=== PATIENT | female | born 1945 | race Caucasian/White ===

== ENCOUNTER → 2017-02-21 | Outpatient (CLI) | payer MEDICARE ==
--- NOTE | 2017-02-21 11:53 | MM ---
Reason for exam: additional evaluation requested from prior study. Last mammogram was performed 1 year ago. History: Patient is postmenopausal and has history of breast cancer at age 63. Family history of breast cancer in paternal aunt at age 60, breast cancer in paternal aunt, and breast cancer in 2 maternal aunts. Malignant right breast needle localzation of the right breast, March 21, 2009. Lumpectomy of the right breast, March 21, 2009. Malignant right mammotome panel of the right breast, March 03, 2009. Benign excisional biopsy of the left breast, 1989. Benign excisional biopsy of the right breast, 1979. Benign excisional biopsy of the right breast, 1969. Benign excisional biopsy of the left breast, 1968. Took estrogen for 9 years 10 months beginning at age 52. Took progesterone for 9 years 10 months beginning at age 52. Took antineoplastic for 5 years beginning at age 63. Physical Findings: Nurse did not find any significant physical abnormalities on exam. MG 3D Diag Mammo W/Cad ANURADHA Bilateral CC and MLO view(s) were taken. Prior study comparison: February 19, 2016, bilateral MG 3d diag mammo w/cad ANURADHA. February 17, 2015, bilateral MG diagnostic mammo w CAD ANURADHA. There are scattered fibroglandular densities. Surgical clips and sensity in the right upper outer quadrant, stable. No significant new findings when compared with previous films. These results were verbally communicated with the patient and result sheet given to the patient on 02/21/17. ASSESSMENT: Benign, BI-RAD 2 RECOMMENDATION: Follow-up diagnostic mammogram of both breasts in 1 year.
== END | disposition home or self-care (01) ==
LOC: RADMAMWWP 10:47
PROVIDERS: ATTEND Internal Medicine Hematology & Oncology
DX: Z85.3 Personal history of malignant neoplasm of breast (principal)
CPT/HCPCS: G0204; G0279

== ENCOUNTER → 2018-03-01 | Outpatient (CLI) | payer MEDICARE ==
--- NOTE | 2018-03-01 10:42 | MM ---
Reason for exam: additional evaluation requested from prior study. Last mammogram was performed 1 year ago. History: Patient is postmenopausal and has history of breast cancer at age 63. Family history of breast cancer in paternal aunt at age 60, breast cancer in paternal aunt, and breast cancer in 2 maternal aunts. Malignant right breast needle localzation of the right breast, March 21, 2009. Lumpectomy of the right breast, March 21, 2009. Malignant right mammotome panel of the right breast, March 03, 2009. Benign excisional biopsy of the left breast, 1989. Benign excisional biopsy of the right breast, 1979. Benign excisional biopsy of the right breast, 1969. Benign excisional biopsy of the left breast, 1968. Took estrogen for 9 years 10 months beginning at age 52. Took progesterone for 9 years 10 months beginning at age 52. Took antineoplastic for 5 years beginning at age 63. Physical Findings: Nurse did not find any significant physical abnormalities on exam. MG 3D Diag Mammo W/Cad ANURADHA Bilateral CC and MLO view(s) were taken. Prior study comparison: February 21, 2017, bilateral MG 3d diag mammo w/cad ANURADHA. February 19, 2016, bilateral MG 3d diag mammo w/cad ANURADHA. The breast tissue is heterogeneously dense. This may lower the sensitivity of mammography. Finding: There are typically benign coarse calcifications in the right breast. Focal asymmetry. Post lumpectomy changes. No significant changes in finding since February 21, 2017 and February 19, 2016. These results were verbally communicated with the patient and result sheet given to the patient on 03/01/18. ASSESSMENT: Benign, BI-RAD 2 RECOMMENDATION: Routine screening mammogram of both breasts in 1 year.
== END | disposition home or self-care (01) ==
LOC: RADMAMWWP 09:22
PROVIDERS: ATTEND Internal Medicine Hematology & Oncology
DX: Z08 Encounter for follow-up examination after completed treatment for malignant neoplasm (principal); Z85.3 Personal history of malignant neoplasm of breast
CPT/HCPCS: 77066; G0279; 77062

== ENCOUNTER → 2019-03-02 | Outpatient (CLI) | payer MEDICARE ==
--- NOTE | 2019-03-02 10:00 | MM ---
Reason for exam: additional evaluation requested from prior study. Last mammogram was performed 1 year ago. History: Patient is postmenopausal and has history of breast cancer at age 63. Family history of breast cancer in paternal aunt at age 60, breast cancer in paternal aunt, and breast cancer in 2 maternal aunts. Malignant right breast needle localzation of the right breast, March 21, 2009. Lumpectomy of the right breast, March 21, 2009. Malignant right mammotome panel of the right breast, March 03, 2009. Benign excisional biopsy of the left breast, 1989. Benign excisional biopsy of the right breast, 1979. Benign excisional biopsy of the right breast, 1969. Benign excisional biopsy of the left breast, 1968. Took estrogen for 9 years 10 months beginning at age 52. Took progesterone for 9 years 10 months beginning at age 52. Took antineoplastic for 5 years beginning at age 63. Physical Findings: Nurse did not find any significant physical abnormalities on exam. MG 3D Diag Mammo W/Cad ANURADHA Bilateral CC and MLO view(s) were taken. ML and spot compression CC view(s) were taken of the right breast. Prior study comparison: March 01, 2018, bilateral MG 3d diag mammo w/cad ANURADHA. February 21, 2017, bilateral MG 3d diag mammo w/cad ANURADHA. There are scattered fibroglandular densities. Post surgical and post therapy change right breast. Progressive fat necrosis calcifications at the upper outer quadrant posterior scar. Adjacent nodularity on the CC view is superficial. Tech places a mole marker to indicate some nodularity relating the scar and this seems to correspond to the mammographic finding. 6 month follow up recommended. These results were verbally communicated with the patient and result sheet given to the patient on 03/02/19. ASSESSMENT: Probably benign, BI-RAD 3 RECOMMENDATION: Follow-up diagnostic mammogram of the right breast in 6 months.
== END ==
LOC: RADMAMWWP 08:34
PROVIDERS: ATTEND Internal Medicine Hematology & Oncology
DX: Z08 Encounter for follow-up examination after completed treatment for malignant neoplasm (principal); Z85.3 Personal history of malignant neoplasm of breast
CPT/HCPCS: 77066; G0279; 77062

== ENCOUNTER → 2019-06-08 | Outpatient (CLI) | payer MEDICARE ==
[2019-06-08 08:48] VITALS: BP 160/88; PULSE 75; RESP 18; TEMP 97.8
--- NOTE | 2019-06-08 09:07 | P.GSHP ---
History of Present Illness H&P Date: 06/08/19 Chief Complaint: abnormal mammogram, nonhealing wound right breast The patient is a 74-year-old white female seen in consultation for Dr. Naveen Juarez regarding a nonhealing wound of her right breast. The patient is a 74 year old white female who had a mammogram on 03-02-19. She had a history of breast cancer at the age of 63 in the right breast, that was treated with a lumpectomy and radiation. She had no involvement of the lymph nodes. She did not have chemotherapy. She did take Femara for about 5 years. She had side effects from this with her feet and did not complete the full five-year course. The lumpectomy was in the upper inner aspect of the right breast. In 1979 the patient had a benign breast biopsy in the lateral aspect of the right breast. Mammogram findings from February 2019 revealed progressive fat necrosis and calcifications at the upper quadrant posterior scar area. Adjacent nodularity in the cc view was superficial. A marker was placed there to indicate some nodularity related in the scar and this seemed to correspond to the mammographic findings. Six-month follow-up of the right breast was recommended. No lesions of concern were noted in the left breast. Historical of significance is the fact that the marker would have been placed on the upper outer quadrant area of the right breast. The patient several days later noticed that the marker was still in place and when she removed as there was some excoriation at the area. An abscess developed at this site which required drainage in her primary care doctor's office on several occasions. The area continues to drain and she comes for evaluation related to this. The area of the skin is slightly pink in color. The drainage is clear. She has not been treated with any antibiotics. The patient is not having any pain. Family History: father: bladder cancer mother: colon cancer brother: cancer unknown primary and brother: prostate Hormonal History: menarche: 15 , breast fed: no, age at : 24 menopause: 52 hormones: 11 years, BCP: 20 years Medical History: dry eyes poor feeling in feet and pain HTN thyroid nodules/radioactive iodine, does not take synthroid Surgical History: 1. thyroid resection 2. tubaligation 3. right knee replacement 4. six breast biopsies, bilateral 5. right breast lumpectomy for invasive lobular cancer < 1 cm Social history: smoke: none alcohol: weekends drugs: none - Constitutional Constitutional: Denies chills, Denies fever - EENT Comment: dry eyes Eyes: denies blurred vision, denies pain Ears: deny: decreased hearing, tinnitus Ears, nose, mouth and throat: Denies headache, Denies sore throat - Breasts Breasts: bilateral: as per HPI - Cardiovascular Cardiovascular: Reports high blood pressure - Respiratory Respiratory: Denies cough, Denies 7 - Gastrointestinal Gastrointestinal: Denies abdominal pain, Denies diarrhea, Denies nausea, Denies vomiting - Genitourinary (Female) Genitourinary: Reports kidney stones, Denies dysuria, Denies hematuria - Menstruation Menstruation: Reports postmenopausal - Musculoskeletal Comment: arthritis - Integumentary Comment: dry skin, rosacea Integumentary: Denies pruritus, Denies rash - Neurological Neurological: Denies numbness, Denies weakness - Psychiatric Psychiatric: Denies anxiety, Denies depression - Endocrine Endocrine: Denies fatigue, Denies weight change - Hematologic/Lymphatic Comment: none - Allergic/Immunologic Allergic/Immunologic: Reports seasonal allergies Medications and Allergies Home Medications Medication Instructions Recorded Confirmed Type Ascorbic Acid [Vitamin C] 360 mg PO HS 06/08/19 06/08/19 History Azelaic Acid 1 applic TOPICAL HS 06/08/19 06/08/19 History Calcium Carb/Vitamin D3/Vit K1 1 each PO QAM 06/08/19 06/08/19 History [Citracal Soft Chew] Cartilage/Collagen/Bor/Hyalur 1 each PO QAM 06/08/19 06/08/19 History [Move Free Ultra Tablet] Cholecalciferol (Vitamin D3) 2,000 unit PO HS 06/08/19 06/08/19 History [Vitamin D3] Krill/[place]-3/Dha/Epa/Lipids 1 each PO BID 06/08/19 06/08/19 History [Krill Oil 350 mg Softgel] Multivit-Min/Iron/Folic/Lutein 1 each PO HS 06/08/19 06/08/19 History [Centrum Silver Women Tablet] Olmesartan [Benicar] 20 mg PO HS 06/08/19 06/08/19 History Allergies Allergy/AdvReac Type Severity Reaction Status Date / Time Sulfa (Sulfonamide Allergy Rash/Hives Unverified 06/08/19 08:03 Antibiotics) Surgical - Exam BMI 36.1 - General obese - Eyes normal ocular movement - ENT normal pinna, no hearing loss, no congestion - Neck no masses, trachea midline, no lymphadectomy - Respiratory normal respiratory effort, clear to auscultation - Cardiovascular Rhythm: regular Heart Sounds: normal: S1, S2 - Abdomen Abdomen: soft, non tender, no guarding, no rigid, no rebound - Integumentary Lateral aspect of the right breast a small open area of drainage approximately 3 mm in size the drainage is clear and serous-appearing in nature - Neurologic no disoriented, no combative - Musculoskeletal normal gait, normal posture - Psychiatric oriented to time, oriented to person, oriented to place, speech is normal, m [place] intact Breast examination: Bra 42C ptosis grade 3 Right breast: Scar lateral aspect of the breast with an opening approximately 3 mm in the portion of the scar. There is serous drainage from this area and on palpation there is a nodular area approximately 3 x 2 cm in size adjacent to this, multiple positional examined the remainder of the breast reveals fibrocystic changes with no dominant masses or nodules of concern otherwise Right axilla: No adenopathy of concern Left breast: Multiple positional exam no dominant masses or nodules of concern, well-healed scar from prior biopsies Left axilla: No adenopathy of concern Results Mammogram reviewed Assessment and Plan Assessment: Impression: 1. Mass right breast lateral aspect 2. Personal history of invasive lobular carcinoma right breast 3. Mammographic abnormality 4. draining lesion right breast lateral aspect, this is believed to be contiguous with the prior biopsy cavity which is in the radiated tissue 5. Fibrocystic breast changes 6. Family history of cancer 7. Hypertension 8. Nephritis 9. Right breast mammogram 6 month follow-up in July 2019, to follow here physically lesion of concern on the mammogram Plan: 1. Appointment and wound clinic for hyperbaric oxygen 2. wound cultures obtained awaiting results 3. Options of conservative management with no intervention versus surgical resection versus hyperbaric oxygen and then possible surgical resection if this fails to heal well discussed with the patient. Dr. Rito Seymour from infectious disease was called in consultation was set up at the wound clinic for possible hyperbaric oxygen. The patient understands the options and the risks and benefits and wishes to proceed with consultation with Dr. Rito Seymour. She has vacation scheduled in [place] for July and will return to see us in October. Additionally the patient was recommended to have repeat right breast mammogram in 6 months which will be in July prior to her trip to [place] if there is any concern on that radiograph would like to see her at that time. CC: Dr. Juarez Encounter 40 minutes, > 50% in counseling and planning
== END ==
LOC: WWCWWP 07:37
PROVIDERS: ATTEND Surgery
DX: L76.34 Postprocedural seroma of skin and subcutaneous tissue following other procedure (principal)
CPT/HCPCS: 87070; 87075; 87077; 87186; 87205

== ENCOUNTER → 2019-07-10 | Outpatient (CLI) | payer MEDICARE ==
--- NOTE | 2019-07-10 14:24 | MM ---
Reason for exam: follow-up at short interval from prior study. Last mammogram was performed 4 months ago. History: Patient is postmenopausal and has history of breast cancer at age 63. Family history of breast cancer in paternal aunt at age 60, breast cancer in paternal aunt, and breast cancer in 2 maternal aunts. Malignant right breast needle localzation of the right breast, March 21, 2009. Lumpectomy of the right breast, March 21, 2009. Malignant right mammotome panel of the right breast, March 03, 2009. Benign excisional biopsy of the left breast, 1989. Benign excisional biopsy of the right breast, 1979. Benign excisional biopsy of the right breast, 1969. Benign excisional biopsy of the left breast, 1968. Took estrogen for 9 years 10 months beginning at age 52. Took progesterone for 9 years 10 months beginning at age 52. Took antineoplastic for 5 years beginning at age 63. Physical Findings: Nurse did not find any significant physical abnormalities on exam. MG 3D Diag Mammo W/Cad RT CC and MLO view(s) were taken of the right breast. Prior study comparison: March 02, 2019, bilateral MG 3d diag mammo w/cad ANURADHA. March 01, 2018, bilateral MG 3d diag mammo w/cad ANURADHA. The breast tissue is heterogeneously dense. This may lower the sensitivity of mammography. No suspicious abnormality. Post therapy change on the right. Previous asymmetry appears as fat necrosis. These results were verbally communicated with the patient and result sheet given to the patient on 07/10/19. ASSESSMENT: Benign, BI-RAD 2 RECOMMENDATION: Routine screening mammogram of both breasts in 8 months. Back on schedule for February 2020.
== END | disposition home or self-care (01) ==
LOC: RADMAMWWP 12:50
PROVIDERS: ATTEND Internal Medicine Hematology & Oncology
DX: R92.8 Other abnormal and inconclusive findings on diagnostic imaging of breast (principal); Z85.3 Personal history of malignant neoplasm of breast
CPT/HCPCS: 77065; G0279; 77061

== ENCOUNTER → 2020-02-26 | Outpatient (CLI) | payer MEDICARE ==
--- NOTE | 2020-02-27 09:15 | MM ---
Reason for exam: screening (asymptomatic). Last mammogram was performed 8 months ago. History: Patient is postmenopausal and has history of breast cancer at age 63. Family history of breast cancer in paternal aunt at age 60, breast cancer in paternal aunt, and breast cancer in 2 maternal aunts. Malignant right breast needle localzation of the right breast, March 21, 2009. Lumpectomy of the right breast, March 21, 2009. Malignant right mammotome panel of the right breast, March 03, 2009. Benign excisional biopsy of the left breast, 1989. Benign excisional biopsy of the right breast, 1979. Benign excisional biopsy of the right breast, 1969. Benign excisional biopsy of the left breast, 1968. Took estrogen for 9 years 10 months beginning at age 52. Took progesterone for 9 years 10 months beginning at age 52. Took antineoplastic for 5 years beginning at age 63. Physical Findings: A clinical breast exam by your physician is recommended on an annual basis and results should be correlated with mammographic findings. MG 3D Screening Mammo W/Cad Bilateral CC and MLO view(s) were taken. Prior study comparison: July 10, 2019, right breast MG 3d diag mammo w/cad RT. March 02, 2019, bilateral MG 3d diag mammo w/cad ANURADHA. The breast tissue is heterogeneously dense. This may lower the sensitivity of mammography. Stable benign calcifications. There is no discrete abnormality. No significant changes when compared with prior studies. ASSESSMENT: Benign, BI-RAD 2 RECOMMENDATION: Routine screening mammogram of both breasts in 1 year.
== END | disposition home or self-care (01) ==
LOC: RADMAMWWP 10:02
PROVIDERS: ATTEND Internal Medicine Hematology & Oncology
DX: Z12.31 Encounter for screening mammogram for malignant neoplasm of breast (principal)
CPT/HCPCS: 77063; 77067

== ENCOUNTER → 2020-08-18 | Outpatient (CLI) | payer MEDICARE ==
[2020-08-18 14:41] LABS: Basophils # (A) 0.04 X 10*3/uL (0.00-0.10); Basophils % (A) 0.7 %; Eosinophils % (A) 3.4 %; HCT 42.4 % (37.2-46.3); HGB 13.8 g/dL (12.0-15.0); Lymphocytes # (A) 1.99 X 10*3/uL (0.90-5.00); Lymphocytes % (A) 34.2 %; MCH 31.9 pg (27.0-32.0); MCHC 32.5 g/dL (32.0-37.0); MCV 97.9 fL (80.0-97.0); Mean Platelet Volume 11.5 fL (9.5-12.2); Monocytes # (A) 0.55 X 10*3/uL (0.20-1.00); Monocytes % (A) 9.5 %; Neutrophils # (A) 3.03 X 10*3/uL (1.80-7.70); Platelet Count 254 X 10*3/uL (140-440); RBC 4.33 X 10*6/uL (4.10-5.20); RDW 11.9 % (11.5-14.5); WBC 5.82 X 10*3/uL (4.50-10.00)
[2020-08-18 15:01] LABS: T4, Free (Free Thyroxine) 1.4 ng/dL (0.80-1.80)
[2020-08-18 16:07] LABS: African American GFR (CKD) 73.5 (60.0-200.0); Albumin/Globulin Ratio 2.08 (1.60-3.17); Anion Gap 5.3 mmol/L (4.00-12.00); BUN/Creat Ratio 26.67 Ratio (12.00-20.00); Calcium 9.8 mg/dL (8.7-10.3); Carbon Dioxide 28.7 mmol/L (21.6-31.8); Chol/HDL Ratio 2.84; Globulin 2.4 g/dL (1.6-3.3); LDL Cholesterol,Calculated 164.4 mg/dL (0.0-131.0); Non-African American GFR(CKD) 63.4 (60.0-200.0); Potassium 4.9 mmol/L (3.5-5.5); Total Bilirubin 0.6 mg/dL (0.3-1.2); Total Protein 7.4 g/dL (6.2-8.2); VLDL Calculation 13.6 mg/dL (5.00-40.00)
== END | disposition home or self-care (01) ==
LOC: LABWHC1 09:13
PROVIDERS: ATTEND Internal Medicine
DX: E03.9 Hypothyroidism, unspecified (principal); E55.9 Vitamin D deficiency, unspecified; E78.5 Hyperlipidemia, unspecified; I10 Essential (primary) hypertension
CPT/HCPCS: 36415; 80053; 80061; 82306; 84439; 84443; 84481; 85025

== ENCOUNTER → 2021-02-26 | Outpatient (CLI) | payer MEDICARE ==
--- NOTE | 2021-03-02 11:45 | MM ---
Reason for exam: screening (asymptomatic). Last mammogram was performed 1 year ago. History: Patient is postmenopausal and has history of breast cancer at age 63. Family history of breast cancer in paternal aunt at age 60, breast cancer in paternal aunt, and breast cancer in 2 maternal aunts. Malignant right breast needle localzation of the right breast, March 21, 2009. Lumpectomy of the right breast, March 21, 2009. Malignant right mammotome panel of the right breast, March 03, 2009. Benign excisional biopsy of the left breast, 1989. Benign excisional biopsy of the right breast, 1979. Benign excisional biopsy of the right breast, 1969. Benign excisional biopsy of the left breast, 1968. Took estrogen for 9 years 10 months beginning at age 52. Took progesterone for 9 years 10 months beginning at age 52. Took antineoplastic for 5 years beginning at age 63. Physical Findings: A clinical breast exam by your physician is recommended on an annual basis and results should be correlated with mammographic findings. MG 3D Screening Mammo W/Cad Bilateral CC and MLO view(s) were taken. Prior study comparison: February 26, 2020, bilateral MG 3d screening mammo w/cad. July 10, 2019, right breast MG 3d diag mammo w/cad RT. There are scattered fibroglandular densities. Post surgical and post therapy change right breast. Stable fat necrosis calcifications at lumpectomy site. No significant changes when compared with prior studies. ASSESSMENT: Benign, BI-RAD 2 RECOMMENDATION: Routine screening mammogram of both breasts in 1 year.
== END | disposition home or self-care (01) ==
LOC: RADMAMWWP 10:33
PROVIDERS: ATTEND Internal Medicine Hematology & Oncology
DX: Z12.31 Encounter for screening mammogram for malignant neoplasm of breast (principal); Z80.3 Family history of malignant neoplasm of breast
CPT/HCPCS: 77063; 77067

== ENCOUNTER 2021-10-14 07:14 | Day surgery (SDC) | payer MEDICARE ==
[2021-10-12 16:38] VITALS: BMI 36.0
--- NOTE | 2021-10-13 19:37 | P.GSHP ---
History of Present Illness H&P Date: 10/13/21 76 yo female with a large collection of renal stones left[>2cm] who has pain and nausea seonfary to the stone. SHe comes for a left pcnl. the risks , complications and alternatives were discussed. - Constitutional Constitutional: Denies chills, Denies fever - EENT Eyes: denies blurred vision, denies pain Ears, nose, mouth and throat: Denies headache, Denies sore throat - Cardiovascular Cardiovascular: Denies chest pain, Denies shortness of breath - Respiratory Respiratory: Denies cough, Denies 7 - Gastrointestinal Gastrointestinal: Denies abdominal pain, Denies diarrhea, Denies nausea, Denies vomiting - Genitourinary (Female) Genitourinary: Denies dysuria, Denies hematuria - Genitourinary (Male) Genitourinary: Denies dysuria, Denies hematuria - Musculoskeletal Musculoskeletal: Denies myalgias - Integumentary Integumentary: Denies pruritus, Denies rash - Neurological Neurological: Denies numbness, Denies weakness - Psychiatric Psychiatric: Denies anxiety, Denies depression - Endocrine Endocrine: Denies fatigue, Denies weight change Past Medical History Past Medical History: Cancer, Hyperlipidemia, Hypertension, Osteoarthritis (OA), Skin Disorder, Thyroid Disorder Additional Past Medical History / Comment(s): Right breast cancer 2008; skin cancer. HTN after cancer tx, takes Rx prn. Environmental allergies. Hx thyroid nodules, hx radioactive iodine tx 2003. Occ GERD. IBS. Rosacea. Lt kidney stone History of Any Multi-Drug Resistant Organisms: None Reported Past Surgical History: Breast Surgery, Orthopedic Surgery, Tubal Ligation Additional Past Surgical History / Comment(s): Rt knee replacement 2005; benign excisional biopsy lt breast 1968, 1989; benign excisional biopsy rt breast 1969, 1979; right breast lumpectomy 03/2009; cataracts Past Anesthesia/Blood Transfusion Reactions: No Reported Reaction, Family Hi story of Problems w/ Anesthesia Additional Past Anesthesia/Blood Transfusion Reaction / Comment(s): Mother had prob years ago. Smoking Status: Never smoker - Past Family History Father Family Medical History: Cancer Additional Family Medical History / Comment(s): Bladder Cancer Mother Family Medical History: Cancer Additional Family Medical History / Comment(s): Colon Cancer Brother(s) Family Medical History: Cancer Additional Family Medical History / Comment(s): Brother #1: cancer of unknown origin. Brother #2: prostate cancer Medications and Allergies Home Medications Medication Instructions Recorded Confirmed Type Ascorbic Acid [Vitamin C] 360 mg PO HS 06/08/19 10/12/21 History Azelaic Acid 1 applic TOPICAL HS PRN 06/08/19 10/12/21 History Calcium Carb/Vitamin D3/Vit K1 1 each PO QAM 06/08/19 10/12/21 History [Citracal Soft Chew] Cartilage/Collagen/Bor/Hyalur 1 each PO QAM 06/08/19 10/12/21 History [Move Free Ultra Tablet] Cholecalciferol (Vitamin D3) 2,000 unit PO HS 06/08/19 10/12/21 History [Vitamin D3] Krill/[place]-3/Dha/Epa/Lipids 1 each PO BID 06/08/19 10/12/21 History [Krill Oil 350 mg Softgel] Multivit-Min/Iron/Folic/Lutein 1 each PO HS 06/08/19 10/12/21 History [Centrum Silver Women Tablet] Olmesartan [Benicar] 20 mg PO DAILY PRN 06/08/19 10/12/21 History Acetaminophen [Tylenol 8 Hour] 1,300 mg PO DIRECTED PRN 10/12/21 10/12/21 History Calcium Carbonate [Tums] 1,000 mg PO QID PRN 10/12/21 10/12/21 History Fluticasone Nasal [place] [Flonase 2 spray EA NOSTRIL DAILY PRN 10/12/21 10/12/21 History Nasal [place]] L.acidoph,Paracasei, B.lactis 1 each PO DAILY 10/12/21 10/12/21 History [Probiotic] Loperamide [Imodium] 2 mg PO QID PRN 10/12/21 10/12/21 History Lutein (Unknown Dose) 1 tab PO DAILY 10/12/21 History Allergies Allergy/AdvReac Type Severity Reaction Status Date / Time Sulfa (Sulfonamide Allergy Rash/Hives Unverified 10/12/21 16:10 Antibiotics) Surgical - Exam - General well developed, well nourished - Eyes normal ocular movement, no icteric - ENT no hearing loss, no congestion - Neck no masses, trachea midline - Respiratory normal respiratory effort, clear to auscultation - Abdomen Abdomen: soft, non tender, no guarding, no rigid, no rebound - Integumentary no rash, no abnormal pigmentation - Neurologic no disoriented, no combative - Psychiatric oriented to time, oriented to person, oriented to place, speech is normal, memory intact Results - Imaging CT scan - abdomen: report reviewed, image reviewed CT scan - pelvis: report reviewed, image reviewed Assessment and Plan Assessment: Impression: Left renal stones large Plan: PCNL left
[~2021-10-14 07:14] MED LIST: LIDOCAINE 1% (10MG/ML) FOR IV START INTRADERMA PRN; MIDAZOLAM 2 MG/2 ML VIAL IV PRN
--- NOTE | 2021-10-14 07:45 | XR ---
EXAMINATION TYPE: XR KUB DATE OF EXAM: 10/14/2021 COMPARISON: None HISTORY: Renal stones presurgical evaluation TECHNIQUE: AP supine abdomen FINDINGS: There are 2 large calcifications in the left renal pelvis measuring 2.2-1.5 cm in size. Mul tiple additional punctate calcifications are within the left kidney. There is a large calcification within the left upper pelvis measuring 2.7 cm. Correlate for uterine f ibroid. Psoas margins are normal. Normal bowel gas is present. Organomegaly is not present. Osseous structure s appear intact. IMPRESSION: 1. 2 large calcifications in the left renal pelvic region with additional smaller calcifications lef t kidney
[2021-10-14] MEDS: LACTATED RINGERS 1,000 ML IV SCH ×3 (08:07→17:28)
[2021-10-14] MEDS: ONDANSETRON 4 MG/2 ML VIAL IVP ONE ×2 (08:13→17:28)
[2021-10-14] MEDS: DEXAMETHASONE SOD PHOSPHATE 4 MG/ML 1 ML VIAL IV ONE ×2 (08:13→17:28)
[2021-10-14] MEDS ORDERED: ENALAPRILAT 1.25 MG/ML 1 ML VIAL ONE (08:31)
[2021-10-14] MEDS ORDERED: ENALAPRILAT 1.25 MG/ML 1 ML VIAL IVP ONE (08:34)
[2021-10-14] MEDS ORDERED: HYDROmorphone (PF) 1 MG/ML ONE (09:01)
[2021-10-14] MEDS ORDERED: GLYCOPYRROLATE 0.2 MG/ML 2 ML VIAL ONE (09:01)
[2021-10-14] MEDS ORDERED: PROPOFOL 10 MG/ML 20 ML VIAL IV ONE (09:01)
[2021-10-14] MEDS ORDERED: LIDOCAINE 1% INJ 10MG/ML (20 ML MDV) ONE (09:01)
[2021-10-14] MEDS ORDERED: ROCURONIUM 10 MG/ML (5 ML VIAL) IV ONE (09:01)
[2021-10-14] MEDS ORDERED: MIDAZOLAM 2 MG/2 ML VIAL ONE (09:01)
[2021-10-14] MEDS ORDERED: fentaNYL (PF) 50 MCG/ML 2 ML AMP ONE (09:01)
[2021-10-14] MEDS ORDERED: NEOSTIGMINE 1 MG/ML 10 ML VIAL ONE (09:01)
[2021-10-14] MEDS ORDERED: SUCCINYLCHOLINE CHLORIDE 100 MG/5 ML SYR IV ONE (09:01)
[2021-10-14] MEDS ORDERED: LACTATED RINGERS 1,000 ML IV ONE (09:50)
[2021-10-14] MEDS ORDERED: IOPAMIDOL-370 50ML BTL IRRIGATION ONE (09:50)
[2021-10-14] MEDS ORDERED: LOSARTAN 50 MG TAB PO PRN (10:42)
[2021-10-14] MEDS ORDERED: FLUTICASONE 50MCG/SPRAY NASAL 16GM EA NOSTRIL PRN (10:42)
[2021-10-14] MEDS ORDERED: LOPERAMIDE 2 MG CAP PO PRN (10:42)
[2021-10-14] MEDS ORDERED: NON FORMULARY DRUG (Acetaminophen [Tylenol 8 Hour] 650 MG Tablet) PO PRN (10:42)
[2021-10-14] MEDS ORDERED: ONDANSETRON 4 MG/2 ML VIAL IVP PRN (10:43)
[2021-10-14] MEDS ORDERED: MAG HYDROX/AL HYDROX/SIMETH 30 ML CUP PO PRN (10:43)
[2021-10-14] MEDS ORDERED: HYDROmorphone PCA 10 MG/50 ML BAG IV PRN (10:45)
[2021-10-14] MEDS ORDERED: NALOXONE 0.4 MG/ML 1 ML VIAL IV PRN (10:45)
--- NOTE | 2021-10-14 10:51 | P.OP ---
Date of Procedure: 10/14/21 Preoperative Diagnosis: Left renal stones, large (greater than 2 cm) Postoperative Diagnosis: Same Procedure(s) Performed: Cystoscopy, placement of occluding balloon catheter left, percutaneous nephrostomy (Dr. woods), percutaneous nephrostolithotomy with ultrasound, placement of 10 J nephrostomy Anesthesia: LUCAS Surgeon: Lawrence Sylvester Estimated Blood Loss (ml): 100 Pathology: other (Stone) Condition: stable Disposition: PACU Indications for Procedure: Patient is 76. She has a painful volume, large, greater than 2 cm, kidney stones in the left renal pelvis. She comes for percutaneous nephrostolithotomy Description of Procedure: Patient brought to the operating suite. Given general anesthesia on the transport gurney. She's placed in a frog position. Sterile prep and drape was administered. 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 The left ureter orifice is identified and intubated with a 5-Belgian occluding balloon catheter passed up the renal pelvis. The cystoscope removed. A 16-Belgian Ivy catheters introduced into the bladder and secured to the ureteral catheter The patient was placed in a prone position with care to airways and extremities. A sterile prep and drape was administered. The left kidney is intubated by Dr. woods of radiology. This is a middle pole calyx. I then dilate the nephrostomy tract to 30-Belgian. Introduced the rigid sheath into the collecting system. Arch renal stones are seen in the pelvis. With ultrasound these are broken into smaller pieces and grasped and removed. Then pass a flexible cystoscope down and the UPJ and basket stone fragments. I then looked throughout the collecting system best possible and see no remaining stones. Then the procedure there is no remaining stones on fluoroscopy. A 10 J nephrostomy tube was placed. It is secured to the skin. The patient's awake and returned recovery in good condition. Blood loss is about 100 mL. Her condition is good.
[2021-10-14] MEDS: HYDROmorphone 0.5 MG/0.5 ML SYRINGE IVP PRN ×2 (10:57→11:11)
[2021-10-14] MEDS: KETOROLAC 15 MG/ML 1 ML VIAL IVP PRN ×3 (11:25→23:53)
--- NOTE | 2021-10-14 11:34 | FL ---
EXAMINATION TYPE: FL Perc Nephrostomy New Access DATE OF EXAM: 10/14/2021 COMPARISON: NONE HISTORY: Left renal stone Procedure had been discussed with the patient by Dr. Sylvester, risks, benefits, alternatives, were dis cussed and any questions were answered. Informed consent was obtained. The patient was in a semipro ne position prepped and draped on the OR table in the usual sterile fashion. Utilizing a 15 cm lengt h Chiba needle a single pass was made into a lower pole posterior calyx under fluoroscopic guidance. An 0.018 guidewire is passed through the needle and there was placement of a 6-Pashto catheter sheat h system. There was conversion to a 0.035 system was performed with passage of a guidewire into the ureter utilizing a directional catheter. A second safety wire was placed. Remaining portion of pro cedure performed by . Approximately 5 minutes and 20 of fluoroscopy was provided. 3 images provided. IMPRESSION: 1. Successful intraoperative left nephrostomy prior to nephrolithotomy.
[2021-10-14] MEDS: DEXTROSE 5%-0.45% NACL 1,000 ML IV SCH (14:14)
[2021-10-14] MEDS: ACETAMINOPHEN TAB 325 MG TAB PO PRN (20:45)
[2021-10-15] MEDS: DEXTROSE 5%-0.45% NACL 1,000 ML IV SCH ×2 (00:32→10:21)
[2021-10-15] MEDS: ACETAMINOPHEN TAB 325 MG TAB PO PRN ×2 (02:58→09:58)
[2021-10-15] MEDS: KETOROLAC 15 MG/ML 1 ML VIAL IVP PRN (06:32)
--- NOTE | 2021-10-15 09:03 | P.DS ---
Providers Expected date of discharge: 10/15/21 Attending physician: Lawrence Sylvester Primary care physician: Felisa Greene MD Hospital Course: On the day of admission, the patient underwent an uncomplicated left percutaneous nephrolithotomy. She experienced pain the night of surgery, but the following morning she was feeling much better. Her pain was controlled with Tylenol and Toradol. The nephrostomy tube was draining blood-tinged urine. The Ivy catheter was draining clear urine. Procedures: Left percutaneous nephrolithotomy on 10/14/2021. Patient Condition at Discharge: Good Plan - Discharge Summary Discharge Rx Participant: Yes New Discharge Prescriptions: New Ketorolac [Toradol] 10 mg PO Q6HR PRN #12 tab PRN Reason: Pain No Action Ascorbic Acid [Vitamin C] 360 mg PO HS Multivit-Min/Iron/Folic/Lutein [Centrum Silver Women Tablet] 1 each PO HS Calcium Carb/Vitamin D3/Vit K1 [Citracal Soft Chew] 1 each PO QAM Krill/Higden-3/Dha/Epa/Lipids [Krill Oil 350 mg Softgel] 1 each PO BID Cholecalciferol (Vitamin D3) [Vitamin D3] 2,000 unit PO HS Olmesartan [Benicar] 20 mg PO DAILY PRN PRN Reason: elevated blood pressure Azelaic Acid 1 applic TOPICAL HS PRN PRN Reason: rosacea Cartilage/Collagen/Bor/Hyalur [Move Free Ultra Tablet] 1 each PO QAM Fluticasone Nasal [place] [Flonase Nasal [place]] 2 spray EA NOSTRIL DAILY PRN PRN Reason: allergy sx Acetaminophen [Tylenol 8 Hour] 1,300 mg PO DIRECTED PRN PRN Reason: Pain Loperamide [Imodium] 2 mg PO QID PRN PRN Reason: IBS sx L.acidoph,Paracasei, B.lactis [Probiotic] 1 each PO DAILY Lutein (Unknown Dose) 1 tab PO DAILY Calcium Carbonate [Tums] 1,000 mg PO QID PRN PRN Reason: GERD Discharge Medication List Ascorbic Acid [Vitamin C] 360 mg PO HS 06/08/19 [History] Azelaic Acid 1 applic TOPICAL HS PRN 06/08/19 [History] Calcium Carb/Vitamin D3/Vit K1 [Citracal Soft Chew] 1 each PO QAM 06/08/19 [History] Cartilage/Collagen/Bor/Hyalur [Move Free Ultra Tablet] 1 each PO QAM 06/08/19 [History] Cholecalciferol (Vitamin D3) [Vitamin D3] 2,000 unit PO HS 06/08/19 [History] Krill/Higden-3/Dha/Epa/Lipids [Krill Oil 350 mg Softgel] 1 each PO BID 06/08/19 [History] Multivit-Min/Iron/Folic/Lutein [Centrum Silver Women Tablet] 1 each PO HS 06/08/19 [History] Olmesartan [Benicar] 20 mg PO DAILY PRN 06/08/19 [History] Acetaminophen [Tylenol 8 Hour] 1,300 mg PO DIRECTED PRN 10/12/21 [History] Calcium Carbonate [Tums] 1,000 mg PO QID PRN 10/12/21 [History] Fluticasone Nasal [place] [Flonase Nasal [place]] 2 spray EA NOSTRIL DAILY PRN 10/12/21 [History] L.acidoph,Paracasei, B.lactis [Probiotic] 1 each PO DAILY 10/12/21 [History] Loperamide [Imodium] 2 mg PO QID PRN 10/12/21 [History] Lutein (Unknown Dose) 1 tab PO DAILY 10/12/21 [History] Ketorolac [Toradol] 10 mg PO Q6HR PRN #12 tab 10/15/21 [Rx] Follow up Appointment(s)/Referral(s): Lawrence Sylvester MD [STAFF PHYSICIAN] - 10/20/21 Activity/Diet/Wound Care/Special Instructions: Discharge home with nephrostomy tube. Diet as tolerated. Drink plenty of fluids. No strenuous activity.
[2021-10-15 09:45] VITALS: BP 152/64; PULSE 74; RESP 18; TEMP 97.9
== END 2021-10-15 11:00 | disposition home or self-care (01) ==
LOC: OR 07:14 → 4FBP 12:29 → OR 10-15 11:00
PROVIDERS: ATTEND Urology
DX: N20.0 Calculus of kidney (principal); I10 Essential (primary) hypertension; E78.5 Hyperlipidemia, unspecified; Z85.3 Personal history of malignant neoplasm of breast; E07.9 Disorder of thyroid, unspecified; M19.90 Unspecified osteoarthritis, unspecified site; K21.9 Gastro-esophageal reflux disease without esophagitis; Z79.899 Other long term (current) drug therapy; K58.9 Irritable bowel syndrome, unspecified; Z88.2 Allergy status to sulfonamides; E04.1 Nontoxic single thyroid nodule
CPT/HCPCS: 50432; 82365; 74018; C1769 ×5; C2628; C1729 ×2; C1894; J2250; J1100; J2710; J0690; J2405; J2001; J3010; J1170 ×2; J1885 ×2; J0330; J2704; Q9967; 86850; 86900; 86901

== ENCOUNTER → 2021-10-27 | Outpatient (CLI) | payer MEDICARE ==
[2021-10-27 14:15] LABS: HCT 42.7 % (37.2-46.3); HGB 13.7 g/dL (12.0-15.0); MCH 31.2 pg (27.0-32.0); MCHC 32.1 g/dL (32.0-37.0); MCV 97.3 fL (80.0-97.0); Mean Platelet Volume 11.5 fL (9.5-12.2); NRBC Per 100 WBC 0 /100 WBCS (0.0-0.0); Platelet Count 249 X 10*3/uL (140-440); RBC 4.39 X 10*6/uL (4.10-5.20); RDW 11.9 % (11.5-14.5); WBC 5.64 X 10*3/uL (4.50-10.00)
[2021-10-27 14:48] LABS: ALT 42 U/L (8-44); AST 25 U/L (13-35); African American GFR (CKD) 81.9 (60.0-200.0); Albumin 4.5 g/dL (3.8-4.9); Albumin/Globulin Ratio 1.41 (1.60-3.17); Alkaline Phosphatase 103 U/L (41-126); BUN/Creat Ratio 23.72 Ratio (12.00-20.00); Blood Urea Nitrogen 19.4 mg/dL (9.0-27.0); Calcium 10.4 mg/dL (8.7-10.3); Carbon Dioxide 23.3 mmol/L (20.0-27.5); Chloride 103 mmol/L (96-109); Chol/HDL Ratio 3.33 Ratio; Globulin 3.2 g/dL (1.6-3.3); Glucose 101 mg/dL (70-110); LDL Cholesterol,Calculated 171.9 mg/dL (0.0-131.0); Non-African American GFR(CKD) 70.7 (60.0-200.0); Potassium 4.6 mmol/L (3.5-5.5); Sodium 138 mmol/L (135-145); Total Protein 7.6 g/dL (6.2-8.2); VLDL Calculation 17.74 mg/dL (5.00-40.00)
== END | disposition home or self-care (01) ==
LOC: LABWHC1 07:55
PROVIDERS: ATTEND Family Medicine
DX: I10 Essential (primary) hypertension (principal); E03.9 Hypothyroidism, unspecified; E55.9 Vitamin D deficiency, unspecified
CPT/HCPCS: 36415; 80053; 80061; 82306; 84439; 84443; 85027

== ENCOUNTER → 2022-03-01 | Outpatient (CLI) | payer MEDICARE ==
--- NOTE | 2022-03-01 11:20 | MM ---
Reason for Exam: Screening (asymptomatic). Last screening mammogram was performed 12 month(s) ago. Patient History: Menarche at age 15. First Full-Term at age 24. Postmenopausal. Breast cancer, right, age 63. Estrogen, starting at age 52 for 9 years, 10 months. Progesterone, starting at age 52 for 9 years, 10 months. 03/21/2009, Lumpectomy on the Right side. 1989, Benign Excisional Biopsy on the left side. 1979, Benign Excisional Biopsy on the right side. 1969, Benign Excisional Biopsy on the right side. 1968, Benign Excisional Biopsy on the left side. 03/21/2009, Malignant Excisional Biopsy on the right side. 03/03/2009, Malignant Core Biopsy on the right side. Paternal aunt had breast cancer, age 60. Paternal aunt had breast cancer. Maternal aunt had breast cancer. Maternal aunt had breast cancer. Prior Study Comparison: 02/21/2017 Bilateral Diagnostic Mammogram, [facility]. 03/01/2018 Bilateral Diagnostic Mammogram, [facility]. 03/02/2019 Bilateral Diagnostic Mammogram, [facility]. 07/10/2019 Right Diagnostic Mammogram, [facility]. 02/26/2020 Bilateral Screening Mammogram, [facility]. 02/26/2021 Bilateral Screening Mammogram, [facility]. Tissue Density: There are scattered fibroglandular densities. Findings: Analyzed By CAD. Redemonstration of right outer upper quadrant consultations with surgical clips. There is no suspicious group of microcalcifications or new suspicious mass in either breast. Overall Assessment: Benign, BI-RAD 2 Management: Screening Mammogram of both breasts in 1 year. A clinical breast exam by your physician is recommended on an annual basis and results should be correlated with mammographic findings. Electronically signed and approved by: Palmer Guevara DO
== END | disposition home or self-care (01) ==
LOC: RADMAMWWP 10:22
PROVIDERS: ATTEND Internal Medicine Hematology & Oncology
DX: Z12.31 Encounter for screening mammogram for malignant neoplasm of breast (principal)
CPT/HCPCS: 77063; 77067

== ENCOUNTER → 2022-07-22 | Outpatient (CLI) | payer MEDICARE ==
--- NOTE | 2022-07-22 09:46 | XR ---
EXAMINATION TYPE: XR KUB DATE OF EXAM: 07/22/2022 COMPARISON: 10/14/2021 INDICATION: Renal calculus TECHNIQUE: Single view abdomen frontal projection FINDINGS: There is a normal colonic bowel gas pattern. Some fecal debris is through the colon. Psoas margins are normal. No organomegaly is present. Several calcifications are scattered through the left kidney. The largest inferior poler measures 1.2 cm. There may be a calcified fibroid within the uterus within the left hemipelvis. Current findings appear stable from comparison. The prior large renal pelvic calcifications are not identified at this time. IMPRESSION: 1. Multiple residual calcifications to the left kidney. 2. Prior left renal pelvic calcifications not identified.
== END | disposition home or self-care (01) ==
LOC: RADXRMAIN 09:14
PROVIDERS: ATTEND Urology
DX: N20.0 Calculus of kidney (principal); N28.89 Other specified disorders of kidney and ureter
CPT/HCPCS: 74018

== ENCOUNTER → 2023-03-02 | Outpatient (CLI) | payer MEDICARE ==
--- NOTE | 2023-03-03 08:08 | MM ---
Reason for Exam: Hx of breast cancer, conservation therapy. Last screening mammogram was performed 12 month(s) ago. Patient History: Menarche at age 15. First Full-Term at age 24. Postmenopausal. Breast cancer, right, age 63. Estrogen, starting at age 52 for 9 years, 10 months. Progesterone, starting at age 52 for 9 years, 10 months. 1989, Benign Excisional Biopsy on the left side. 1979, Benign Excisional Biopsy on the right side. 1969, Benign Excisional Biopsy on the right side. 1968, Benign Excisional Biopsy on the left side. 03/21/2009, Malignant Excisional Biopsy on the right side. 03/03/2009, Malignant Core Biopsy on the right side. Maternal aunt had breast cancer, age 60. Paternal aunt had breast cancer at or over age 50. Maternal aunt had breast cancer at or over age 50. Maternal aunt had breast cancer. Prior Study Comparison: 02/26/2020 Bilateral Screening Mammogram, [facility]. 02/26/2021 Bilateral Screening Mammogram, [facility]. 03/01/2022 Bilateral MG 3D screening mammo w/cad, [facility]. Tissue Density: There are scattered fibroglandular densities. Findings: Analyzed By CAD. Redemonstration of right outer upper quadrant benign calcifications are architectural distortion and surgical clips. There is no suspicious group of microcalcifications or new suspicious mass in either breast. Overall Assessment: Benign, BI-RAD 2 Management: Screening Mammogram of both breasts in 1 year. A clinical breast exam by your physician is recommended on an annual basis and results should be correlated with mammographic findings. Electronically signed and approved by: Cisco Strauss D.O.
== END | disposition home or self-care (01) ==
LOC: RADMAMWWP 09:31
PROVIDERS: ATTEND Internal Medicine Hematology & Oncology
DX: Z12.31 Encounter for screening mammogram for malignant neoplasm of breast (principal); Z78.0 Asymptomatic menopausal state; Z85.3 Personal history of malignant neoplasm of breast; Z80.3 Family history of malignant neoplasm of breast
CPT/HCPCS: 77063; 77067

== ENCOUNTER → 2024-03-06 | Outpatient (CLI) | payer MEDICARE ==
--- NOTE | 2024-03-11 12:36 | MM ---
Reason for Exam: Screening (asymptomatic). Last mammogram was performed 1 year(s) and 1 month(s) ago. Patient History: Menarche at age 15. First Full-Term at age 24. Postmenopausal. Breast cancer, right, age 63. Estrogen, starting at age 52 for 9 years, 10 months. Progesterone, starting at age 52 for 9 years, 10 months. 03/21/2009, Lumpectomy on the Right side. 1989, Benign Excisional Biopsy on the left side. 1979, Benign Excisional Biopsy on the right side. 1969, Benign Excisional Biopsy on the right side. 1968, Benign Excisional Biopsy on the left side. 03/21/2009, Malignant Excisional Biopsy on the right side. 03/03/2009, Malignant Core Biopsy on the right side. Maternal aunt had breast cancer, age 60. Paternal aunt had breast cancer at or over age 50. Maternal aunt had breast cancer at or over age 50. Maternal aunt had breast cancer. Prior Study Comparison: 02/26/2021 Bilateral Screening Mammogram, [facility]. 03/01/2022 Bilateral MG 3D screening mammo w/cad, [facility]. 03/02/2023 Bilateral MG 3D screening mammo w/cad, [facility]. Tissue Density: There are scattered areas of fibroglandular density. Findings: Analyzed By CAD. Right breast surgical clips. Right breast: There is no suspicious group of microcalcifications or new suspicious mass. Benign-appearing calcifications right breast. Left breast: There is no suspicious group of microcalcifications or new suspicious mass. Overall Assessment: Benign, BI-RAD 2 Management: Screening Mammogram of both breasts in [address] [facility] will attempt to contact patient to return for supplemental views and ultrasound if indicated. Patient should continue monthly self-breast exams. A clinical breast exam by your physician is recommended on an annual basis. This exam should not preclude additional follow-up of suspicious palpable abnormalities. Note on Latisha scores and lifetime risk: 1. A Latisha score greater than 3% is considered moderate risk. If this is the case, consider specialist referral to assess eligibility for a risk reducing agent. 2. If overall lifetime risk for the development of breast cancer is 20% or higher, the patient may qualify for future screening with alternating mammogram and breast MRI. Electronically signed and approved by: Palmer Guevara DO
== END | disposition home or self-care (01) ==
LOC: RADMAMWWP 09:52
PROVIDERS: ATTEND Family Medicine
DX: Z12.31 Encounter for screening mammogram for malignant neoplasm of breast
CPT/HCPCS: 77063; 77067